=== PATIENT | female | born 1960 | race Caucasian/White ===

== ENCOUNTER → 2021-06-11 | Outpatient (CLI) | payer BC ==
[2021-06-11 09:59] LABS: HEMOGLOBIN 18.7 gm/dl (12.3-15.3); RED BLOOD COUNT 5.95 M/UL (4.00-5.10); WHITE BLOOD COUNT 9.7 K/UL (4.5-11.0)
[2021-06-11 10:29] LABS: BUN/CREATININE RATIO 16 (0-10)
[2021-06-12 06:45] LABS: CREATININE, URINE 89.2 mg/dL (Not Estab.)
== END ==
LOC: LAB 09:37
PROVIDERS: Internal Medicine
DX: D35.02 Benign neoplasm of left adrenal gland (principal); D75.1 Secondary polycythemia; E04.1 Nontoxic single thyroid nodule; E11.8 Type 2 diabetes mellitus with unspecified complications
CPT/HCPCS: 36415; 80053; 80061; 82043; 82570; 82607; 82728; 82746; 83036; 83540; 83550; 85025

== ENCOUNTER → 2021-08-10 | Outpatient (CLI) | payer BC | LOC: KOH-I 12:11 | DX: F17.210 Nicotine dependence, cigarettes, uncomplicated (principal) | CPT/HCPCS: 71271 ==

== ENCOUNTER → 2022-04-06 | Outpatient (CLI) | payer BC | LOC: KOH-I 08:09 | DX: R06.02 Shortness of breath (principal) | CPT/HCPCS: 71046 ==

== ENCOUNTER → 2022-05-02 | Outpatient (CLI) | payer BC | LOC: CT 04-14 09:30 | DX: D35.02 Benign neoplasm of left adrenal gland (principal); K76.0 Fatty (change of) liver, not elsewhere classified | CPT/HCPCS: Q9967 ==